=== PATIENT | male | born 1940 ===

== ENCOUNTER 2022-03-26 06:00 | Outpatient (RCR) | payer MEDICARE, SELFPAY | END 2022-04-19 23:59 | disposition home or self-care (01) | LOC: GPT 06:00 | PROVIDERS: Visit Provider Orthopaedic Surgery | DX: M25.552 Pain in left hip (principal) | CPT/HCPCS: 97110; 97112; 97140; 97161; 97535 ==

== ENCOUNTER 2022-04-20 06:00 | Outpatient (RCR) | payer MEDICARE, SELFPAY | END 2022-05-20 23:59 | disposition home or self-care (01) | LOC: GPT 06:00 | PROVIDERS: Visit Provider Orthopaedic Surgery | DX: M25.552 Pain in left hip (principal) | CPT/HCPCS: 97110; 97140 ==